=== PATIENT | female | born 1945 | race Caucasian/White ===

== ENCOUNTER 2020-08-30 13:18 | Outpatient (CLI) | payer MEDICARE, OTHER | END 2020-08-30 23:59 | disposition home or self-care (01) | LOC: CARD DIAG 13:18 | PROVIDERS: ATTEND Internal Medicine Hematology & Oncology | DX: C73 Malignant neoplasm of thyroid gland (principal); C78.00 Secondary malignant neoplasm of unspecified lung; C44.91 Basal cell carcinoma of skin, unspecified; I08.8 Other rheumatic multiple valve diseases | CPT/HCPCS: 93306 ==